=== PATIENT | male | born 1995 | race Two or more races ===

== ENCOUNTER 2025-07-21 19:28 | Emergency (ER) | payer SELFPAY ==
[~2025-07-21] VITALS: Ht 175.3 cm; Wt 75.0 kg
[2025-07-21] MEDS: LORazepam 2MG/ML-1ML VIAL ONE (19:51)
[2025-07-21] MEDS: HALOPERIDOL LACTATE 5 MG/ML INJ VIAL ONE (19:51)
[2025-07-21] MEDS: diphenhdrAMINE HCL 50 MG/1 ML VL ONE (19:51)
--- NOTE | 2025-07-21 19:51 | ED.PDOC ---
History of Present Illness HPI Comments 31 y/o M, with unknown Hx, is BIB[place] from private residence for c/c AMS. Per EMS personnel report, law enforcement called after patient overdose on a bunch of fentanyl pills, earlier, this evening. Unknown amount. Patient was reported to have become unresponsive, with law enforcement initiating CPR and administering 24mg Narcan prior to patient becoming responsive. Upon arrival to ED, patient is, actively, vomiting and cooperated with staff. Further history is limited, due to patient's condition. 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 Past Medical History PAST MEDICAL HISTORY: Unknown, Unobtainable Surgical History: Unknown, Unobtainable Family History Family History: Unknown, Unobtainable Social History Smoker: Unknown, Unobtainable Alcohol: Unknown, Unobtainable Drugs: Other (opioid) Lives In: Home All Other Systems: Reviewed and Negative (as per HPI) Physical Exam General Appearance: Normal, Other (extremely agitated, diaphoretic, vomiting actively) HEENT: Normal ENT Inspection Neck: Full Range of Motion, Non-Tender, Normal, Normal Inspection Respiratory: Chest Non-Tender, Lungs Clear, No Accessory Muscle Use, No Respiratory Distress, Normal Breath Sounds Cardiovascular: No Edema, No JVD, No Murmur, No Gallop, Normal Peripheral Pulses, Regular Rate/Rhythm Breast Exam: Deferred Gastrointestinal: No Organomegaly, Non Tender, No Pulsatile Mass, Normal Bowel Sounds, Soft Genitalia: Deferred Pelvic: Deferred Rectal: Deferred Extremities: No calf tenderness, Normal capillary refill, Normal inspection, Normal range of motion, Non-tender, No pedal edema Musculoskeletal : Apperance: Normal 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 Was a procedure done?: No Differential Dx Considerations may include: substance abuse and dependency, opioid overdose, toxic metabolic encephalopathy, dehydration, electrolyte imbalance, among others X-Ray, Labs, Meds, VS Vital Signs Date Time Temp Pulse Resp B/P (MAP) Pulse Ox O2 Delivery O2 Flow Rate FiO2 07/21/25 22:30 67 21 132/87 (102) 93 07/21/25 20:41 80 24 100 Nasal Cannula* 4 36 07/21/25 20:41 99.7 80 24 161/86 (111) 100 99.7 07/21/25 20:00 65 07/21/25 19:30 98 34 98 Lab Test 07/21/25 20:24 07/21/25 19:39 Range/Units White Blood Count 9.0 4.4-10.8 10^3/uL Red Blood Count 5.09 4.5-5.90 10^6/uL Hemoglobin 13.9 13.5-17.5 g/dL Hematocrit 41.1 41.0-53.0 % Mean Corpuscular Volume 80.6 80.0-100.0 fL Mean Corpuscular Hemoglobin 27.3 L 28.0-32.0 pg Mean Corpuscular Hemoglobin Concent 33.9 32.0-36.0 g/dL Red Cell Distribution Width 14.0 11.8-14.3 % Platelet Count 290 140-450 10^3/uL Mean Platelet Volume 8.6 6.9-10.8 fL Neutrophils (%) (Auto) 64.2 37.0-80.0 % Lymphocytes (%) (Auto) 26.9 10.0-50.0 % Monocytes (%) (Auto) 7.1 0.0-12.0 % Eosinophils (%) (Auto) 1.0 0.0-7.0 % Basophils (%) (Auto) 0.8 0.0-2.0 % Neutrophils # (Auto) 5.8 1.6-8.6 10 ^3/uL Lymphocytes # (Auto) 2.4 0.4-5.4 10 ^3/uL Monocytes # (Auto) 0.6 0-1.3 10 ^3/uL Eosinophils # (Auto) 0.1 0-0.8 10 ^3/uL Basophils # (Auto) 0.1 0-0.2 10 ^3/uL Nucleated Red Blood Cells 0.1 % Sodium Level 143 136-145 mmol/L Potassium Level 2.9 L 3.5-5.1 mmol/L Chloride Level 106 98-107 mmol/L Carbon Dioxide Level 26 20-31 mmol/L Anion Gap 11 5-15 Blood Urea Nitrogen 14 9-23 mg/dL Creatinine 0.85 0.700-1.30 mg/dL Glomerular Filtration Rate Calc 118 >90 mL/min BUN/Creatinine Ratio 16.5 10.0-20.0 Serum Glucose 92 74-106 mg/dL Calcium Level 9.7 8.7-10.4 mg/dL Magnesium Level 2.1 1.6-2.6 mg/dL Total Bilirubin 0.4 0.2-1.0 mg/dL Aspartate Amino Transferase (AST) 25 13-40 U/L Alanine Aminotransferase (ALT) 23 7-40 U/L Alkaline Phosphatase 94 46-116 U/L Total Protein 7.7 5.7-8.2 g/dL Albumin 4.5 3.2-4.8 g/dL Salicylates Level < 3.0 -30 mg/dL Acetaminophen Level < 2.0 L 10.0-20.0 UG/ML Plasma/Serum Blood Alcohol < 3.0 <10 mg/dL Urine Color Light-orange Yellow Urine Clarity Ex.turbid Clear Urine pH 7.0 5.0-9.0 Urine Specific [place] 1.030 1.001-1.035 Urine Protein Trace H Negative Urine Ketones Negative Negative Urine Blood Negative Negative /uL Urine Nitrite Negative Negative Urine Bilirubin Negative Negative Urine Urobilinogen Normal Negative mg/dL Urine Leukocyte Esterase Negative Negative /uL Urine RBC 1 0 - 3 /hpf Urine Microscopic WBC 0-3 /HPF Urine Squamous Epithelial Cells None seen <5 /hpf Urine Amorphous Crystals Mod None Seen /hpf Urine Bacteria Few H None Seen /hpf Urine Mucus Few None Seen Urine Glucose Normal Normal mg/dL Urine Opiates Screen Neg NEGATIVE Urine Fentanyl Screen Pos NEGATIVE Urine Barbiturates Screen Neg NEGATIVE Urine Phencyclidine Screen Neg NEGATIVE Urine Amphetamines Screen Pos NEGATIVE Urine Benzodiazepines Screen Neg NEGATIVE Urine Cocaine Screen Neg NEGATIVE Urine Cannabinoids Screen Neg NEGATIVE Current Medications Medications (Trade) Dose Ordered Sig/Janeth Route Start Time Stop Time Status Last Admin Sodium Chloride 500 ml @ 500 mls/hr Q1H ONCE IVB 07/21/25 19:45 07/21/25 20:44 DC 07/21/25 19:56 Haloperidol Lactate (Haldol) 10 mg ONCE ONCE IM 07/21/25 19:45 07/21/25 19:46 DC 07/21/25 19:56 Diphenhydramine HCl (Benadryl Injection) 50 mg ONCE ONCE IM 07/21/25 19:45 07/21/25 19:46 DC 07/21/25 19:55 Lorazepam (Ativan Inj) 2 mg ONCE ONCE IM 07/21/25 19:45 07/21/25 19:46 DC 07/21/25 19:55 Ondansetron HCl (Zofran) 4 mg ONCE ONCE IV 07/21/25 20:45 07/21/25 20:46 DC 07/21/25 20:39 Potassium Chloride 100 ml @ 50 mls/hr ONCE ONCE IV 07/21/25 22:00 07/21/25 23:59 DC 07/22/25 03:55 Lorazepam (Ativan Inj) 1 mg ONCE ONCE IV 07/22/25 01:00 07/22/25 01:01 DC 07/22/25 01:01 [place] [address] Ph: [phone] DIAGNOSTIC IMAGING Diagnostic Imaging Report : [id number] Signed PATIENT: CATIA HOWE ACCT: [id number] UNIT: [id number] : 07/21/1994 LOC: ER ROOM / BED: / AGE / SEX: 31 / M ADM STATUS: REG ER SERVICE 38 ORDERING PHYSICIAN: JESSICA HINES MD PROCEDURE(s): CXRP - CHEST PORTABLE REASON: SOB ORDER NUMBER(s): [id number], ACCESSION NUMBER(s): [id number] EXAM: XY CHEST PORTABLE TECHNIQUE: Single frontal chest radiograph CLINICAL HISTORY: SOB COMPARISON: None Findings/Impression: Frontal chest radiograph demonstrates no acute osseous or superficial soft tissue abnormalities. The trachea is midline. The cardiac silhouette and mediastinum are within normal limits. No pneumothorax, pleural effusions, or consolidations. ATED BY: STARLA UA DO DICTATED DATE/TIME: 07/21/252134 SIGNED BY: STARLA UA DO SIGNED DATE/TIME: 07/21/252134 CC: Time of 1ST Reevaluation: 20:20 Reevaluation 1ST: Unchanged Time of 2ND Reevaluation: 04:07 Reevaluation 2ND: Improved Patient Education/Counseling: Other (patient extremely agitated) Family Education/Counseling: No Family Present SEPSIS Sepsis Screen Physician Orders Chest Portable (07/21/25 19:39) Insert [place] Catheter QSHIFT (07/21/25 20:37) Behavioral Restraints (07/21/25 19:35) Vital Signs Date Time Temp Pulse Resp B/P (MAP) Pulse Ox O2 Delivery O2 Flow Rate FiO2 07/21/25 22:30 67 21 132/87 (102) 93 07/21/25 20:41 80 24 100 Nasal Cannula* 4 36 07/21/25 20:41 99.7 80 24 161/86 (111) 100 99.7 07/21/25 20:00 65 07/21/25 19:30 98 34 98 Laboratory Tests Test 07/21/25 20:24 White Blood Count 9.0 10^3/uL (4.4-10.8) Medications Medications Dose Ordered Sig/Janeth Route Start Time Stop Time Status Last Admin Dose Admin Diphenhydramine HCl 50 mg ONCE ONCE IM 07/21/25 19:45 07/21/25 19:46 DC 07/21/25 19:55 Haloperidol Lactate 10 mg ONCE ONCE IM 07/21/25 19:45 07/21/25 19:46 DC 07/21/25 19:56 Lorazepam 1 mg ONCE ONCE IV 07/22/25 01:00 07/22/25 01:01 DC 07/22/25 01:01 Lorazepam 2 mg ONCE ONCE IM 07/21/25 19:45 07/21/25 19:46 DC 07/21/25 19:55 Ondansetron HCl 4 mg ONCE ONCE IV 07/21/25 20:45 07/21/25 20:46 DC 07/21/25 20:39 Potassium Chloride 100 ml @ 50 mls/hr ONCE ONCE IV 07/21/25 22:00 07/21/25 23:59 DC 07/22/25 03:55 Sodium Chloride 500 ml @ 500 mls/hr Q1H ONCE IVB 07/21/25 19:45 07/21/25 20:44 DC 07/21/25 19:56 Departure 1 Departure Time of Disposition: 06:00 Impression: Primary Impression: Opiate abuse, continuous Additional Impression: Methamphetamine abuse Disposition: HOME / SELF CARE / HOMELESS Condition: Stable Discharged With: Self Critical Care Note Critical Care Time?: No Stability Stability form required: No Heart Score Heart Score: Heart Score Response (Comments) Value History N/A 0 EKG N/A 0 Age N/A 0 Risk Factors N/A 0 Troponin N/A 0 Total 0 I personally scribed for JESSICA HINES MD ([email or web address]) on 07/21/25 at 19:51. Electronically submitted by Sacha Novak ([email or web address]). I personally scribed for JESSICA HINES MD ([email or web address]) on 07/21/25 at 22:32. Electronically submitted by Sacha Novak ([email or web address]). JESSICA HINES MD Jul 21, 2025 19:51
[2025-07-21] MEDS: diphenhdrAMINE HCL 50 MG/1 ML VL IM ONE (19:55)
[2025-07-21] MEDS: LORazepam 2MG/ML-1ML VIAL IM ONE (19:55)
[2025-07-21] MEDS: SODIUM CHLORIDE 0.9% 500 ML IVB ONE (19:56)
[2025-07-21] MEDS: HALOPERIDOL LACTATE 5 MG/ML INJ VIAL IM ONE (19:56)
[2025-07-21] MEDS: ONDANSETRON HCL 4 MG/2 ML VIAL IV ONE (20:39)
[2025-07-21] MEDS: ONDANSETRON HCL 4 MG/2 ML VIAL ONE (20:39)
[2025-07-21 20:41] VITALS: PULSE 80; RESP 24; O2SAT 100
[2025-07-21 21:06] LABS: Hematocrit 41.1 % (41.0-53.0); Hemoglobin 13.9 g/dL (13.5-17.5); Mean Corpuscular Hemoglobin 27.3 pg (28.0-32.0); Mean Corpuscular Volume 80.6 fL (80.0-100.0); Nucleated Red Blood Cells % 0.1 %
[2025-07-21 21:07] LABS: Alanine Aminotransferase 23 U/L (7-40); Albumin 4.5 g/dL (3.2-4.8); Alkaline Phosphatase 94 U/L (46-116); Anion Gap 11 (5-15); BUN/Creatinine Ratio 16.5 (10.0-20.0); Bilirubin, Total 0.4 mg/dL (0.2-1.0); Blood Urea Nitrogen 14 mg/dL (9-23); Calcium 9.7 mg/dL (8.7-10.4); Carbon Dioxide 26 mmol/L (20-31); Chloride 106 mmol/L (98-107); Glucose 92 mg/dL (74-106); Magnesium 2.1 mg/dL (1.6-2.6); Sodium 143 mmol/L (136-145); Total Protein 7.7 g/dL (5.7-8.2)
[2025-07-21 21:31] LABS: Acetaminophen < 2.0 UG/ML (10.0-20.0); Salicylate < 3.0 mg/dL (-30)
[2025-07-21 21:32] LABS: Potassium 2.9 mmol/L (3.5-5.1)
--- NOTE | 2025-07-21 21:36 | DVH ---
EXAM: XY CHEST PORTABLE TECHNIQUE: Single frontal chest radiograph CLINICAL HISTORY: SOB COMPARISON: None Findings/Impression: Frontal chest radiograph demonstrates no acute osseous or superficial soft tissue abnormalities. The trachea is midline. The cardiac silhouette and mediastinum are within normal limits. No pneumothorax, pleural effusions, or consolidations.
[2025-07-21 21:48] LABS: Urine Amorphous Crystal MOD /hpf (None Seen); Urine Protein, UAD TRACE (Negative)
[2025-07-21 22:15] LABS: Barbiturate Scree,Urine Neg (NEGATIVE); Opiate Scree,Urine Neg (NEGATIVE)
[2025-07-21 22:16] LABS: Amphetamine Screen, Urine Pos (NEGATIVE); Benzodiazephine Screen, Urine Neg (NEGATIVE); Cannabinoid Screen, Urine Neg (NEGATIVE); Cocaine Screen, Urine Neg (NEGATIVE); Phencyclidine Screen, Urine Neg (NEGATIVE)
[2025-07-22] MEDS: LORazepam 2MG/ML-1ML VIAL IV ONE (01:01)
[2025-07-22] MEDS: POTASSIUM CHL 20MEQ/100ML 100 ML IV ONE (03:55)
[2025-07-22 08:00] VITALS: PULSE 51; RESP 14; O2SAT 100
--- NOTE | 2025-07-22 08:45 | DVH ---
CLINICAL HISTORY: Mental status change. TECHNIQUE: Helical scanning was performed of the head from the skull base to the vertex. Multiplanar reconstructions were performed. This exam was performed according to our departmental dose optimizat ion program. Up-to-date CT equipment and radiation dose reduction techniques are utilized as appropri ate. CTDI 61 DLP 860.2 COMPARISON: None FINDINGS: There is no evidence for acute intracranial hemorrhage, acute ischemic changes, mass, mass effect, or extra-axial fluid collection. There is no hydrocephalus or midline shift. There is no effacement of the cerebral sulci and basal subarachnoid cisterns. The abbott-white matter differentiation is well jacquelyn ntained. The imaged paranasal sinuses demonstrate minimal scattered mucoperiosteal thickening. IMPRESSION: NO ACUTE INTRACRANIAL ABNORMALITY SEEN.
[2025-07-22 20:00] VITALS: RESP 16; O2SAT 95
[2025-07-23 01:15] VITALS: BP 136/94; PULSE 79; RESP 18; TEMP 98.1
[2025-07-23 01:20] VITALS: O2SAT 96
--- NOTE | 2025-07-23 01:23 | PRN ---
Misceleneous Note Note Note Patient is seen and evaluated prior to discharge. He is ambulating. Awake, alert, oriented. Able to tolerate p.o.. Patient is requesting to be discharged. He will be discharged to the custody of law enforcement. Advised to take potassium daily for the next few days for hypokalemia. Disposition Disposition: Discharge home/self care Disposition condition: Good Visit Coding Complete: CAESAR Navarro MD Jul 23, 2025 01:23
[2025-07-23] MEDS ORDERED: POTA-36 PO (01:24)
== END 2025-07-23 01:26 | disposition home or self-care (01) ==
LOC: EDBD 19:28 → ER 19:28
DX: F11.10 Opioid abuse, uncomplicated (principal); R51.9 Headache, unspecified; F15.10 Other stimulant abuse, uncomplicated; F17.200 Nicotine dependence, unspecified, uncomplicated; Z79.899 Other long term (current) drug therapy
CPT/HCPCS: 36415; 70450; 71045; 80053; 80307; 80320; 80329; 81001; 83735; 84132; 85025; 96361; 96372; 96374; 96375; 99285; J1200; J1630; J2060; J2405; J3480; J7040